=== PATIENT | male | born 1975 | race African-American/Black ===

== ENCOUNTER 2020-09-08 18:29 | Emergency (ER) | payer OTHER, SELFPAY ==
--- NOTE | ~2020-09-08 | US_ITS ---
EXAMINATION: US SCROTUM CLINICAL INFORMATION: Left testicular/scrotal swelling. COMPARISON: None TECHNIQUE: A sonogram of the scrotum was performed assessing mitchell-scale appearance and color Doppler flow. Spectral Doppler analysis of the arterial and venous flow were performed in the testes bilaterally. FINDINGS: RIGHT: Right testicle measures 4.4 x 2.5 x 3.1 cm, volume 17.7 mL. No focal testicular parenchymal lesions are visualized. Spectral Doppler analysis of the arterial and venous flow is normal in the right testis. Right epididymal head is normal in size. A small right hydrocele is present. No varicocele is seen. The epididymal body as slightly increased in size and epididymal Doppler flow is increased. An epididymal appendix is seen LEFT: Left testicle measures 4.4 x 2.6 x 3.1 cm, volume 18.5 mL. No focal testicular parenchymal lesions are visualized. Spectral Doppler analysis of the arterial and venous flow is normal in the left testis. Left epididymal head is normal in size. A physiologic left hydrocele present. No varicocele is seen. Left epididymal Doppler flow is normal. US/US scrotum IMPRESSION: 1. Normal-appearing testes. 2. Normal symmetric flow in both testes without evidence to suggest torsion. 3. Moderate-sized right hydrocele 4. Increased vascular flow in right epididymis suggesting epididymitis
--- NOTE | ~2020-09-08 | US_ITS ---
EXAMINATION: US SCROTUM CLINICAL INFORMATION: Left testicular/scrotal swelling. COMPARISON: None TECHNIQUE: A sonogram of the scrotum was performed assessing mitchell-scale appearance and color Doppler flow. Spectral Doppler analysis of the arterial and venous flow were performed in the testes bilaterally. FINDINGS: RIGHT: Right testicle measures 4.4 x 2.5 x 3.1 cm, volume 17.7 mL. No focal testicular parenchymal lesions are visualized. Spectral Doppler analysis of the arterial and venous flow is normal in the right testis. Right epididymal head is normal in size. A small right hydrocele is present. No varicocele is seen. The epididymal body as slightly increased in size and epididymal Doppler flow is increased. An epididymal appendix is seen LEFT: Left testicle measures 4.4 x 2.6 x 3.1 cm, volume 18.5 mL. No focal testicular parenchymal lesions are visualized. Spectral Doppler analysis of the arterial and venous flow is normal in the left testis. Left epididymal head is normal in size. A physiologic left hydrocele present. No varicocele is seen. Left epididymal Doppler flow is normal. US/US scrotum doppler IMPRESSION: 1. Normal-appearing testes. 2. Normal symmetric flow in both testes without evidence to suggest torsion. 3. Moderate-sized right hydrocele 4. Increased vascular flow in right epididymis suggesting epididymitis
[2020-09-08 18:48] VITALS: BP 150/89; PULSE 71; RESP 18; TEMP 36.4; O2SAT 99; BMI 29.9
[2020-09-08] MEDS: Ketorolac Tromethamine 60 MG/2 ML VIAL IM (20:33)
--- NOTE | 2020-09-08 20:44 | ED.MALEGU ---
HPI - Male Genitourinary General Chief complaint: Urogenital-Male Stated complaint: severe swollen in lower extrimity Time Seen by Provider: 09/08/20 19:51 Source: patient Mode of arrival: ambulatory Limitations: no limitations History of Present Illness HPI Narrative: 45-year-old male who presents emergency department for evaluation of painful swollen right testicle. The patient states that the pain and swelling came on gradually approximately 3 days prior. He states the pain is a constant, dull ache which is [id number] in intensity. He states that the testicle is gotten larger in size therefore E became concerned and came to the emergency department for evaluation. He denied fever, chills, frequency, urgency, dysuria or penile discharge. 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 2230: The patient's Doppler ultrasound of the testicle and scrotum revealed no evidence of torsion. The patient does have increased vascular flow to the right epididymis suggesting epididymitis. There is a moderate-size right hydrocele as well. The patient was treated with ceftriaxone 500 mg with lidocaine IM. He was given a prescription for doxycycline 100 mg every 12 hours times 10 days, given his 1st dose here in the emergency department. Patient will also be treated with Flagyl 2 g orally x1 dose. The patient will be tested for GC and chlamydia from a non clean catch urine. The patient will need to follow-up with our on-call neurologist. He was advised to take Tylenol and ibuprofen for his pain. Related Data Allergies Allergy/AdvReac Type Severity Reaction Status Date / Time No Known Allergies Allergy Verified 09/08/20 18:53 Review of Systems Review of Systems: Yes all other systems are reviewed and are negative [facility] Past Medical History [facility] Narrative: Past medical history: Diabetes mellitus, gout, bicuspid aortic valve. Surgical history: None. Social history: He denies tobacco, alcohol and drug use. Medical History (Updated 09/08/20 @ 18:52 by Kaya Manley) Gout Rheumatoid arthritis Surgical History (Updated 09/08/20 @ 18:52 by Kaya Manley) H/O hand surgery Social History Social History Advance Directives: No Advance Directives Information Provided: Yes Physical Exam Vital Signs: Vital Signs: Last Vital Signs Temp 97.6 F 09/08/20 18:48 Pulse 71 09/08/20 18:48 Resp 18 09/08/20 18:48 BP 150/89 H 09/08/20 18:48 Pulse Ox 99 09/08/20 18:48 Body Mass Index 29.9 Const: General: cooperative and healthy appearing Nutritional Appearance: average body habitus Orientation/consciousness: oriented to person and oriented to place Limitations: no limitations HENMT: Head: Yes normal to inspection Eyes: General: appearance normal, both eyes and all related structures Neck: Neck: Yes normal visual inspection Chest: Chest palpation & inspection: normal inspection of the chest Resp: Effort & Inspection: normal respiratory effort Cardio: Rhythm: regular rhythm Heart sounds: S1 normal heart sound present and S2 normal heart sound present GI: Inspection: Yes normal to inspection Palpation (GI): Soft to palpation and nontender : Meatus: meatus normal and no meatla discharge Scrotum: not erythematous, testes descended bilaterally and scrotal swelling on the right and diffuse Testes: Enlarged testicle(s) present, epididymal induration and epididymal tenderness Neuro: General: oriented to person and oriented to place Extrem: General: Yes normal to inspection Psych: Appearance: grossly normal Course Course Course Narrative: 45-year-old male who presents the emergency department for evaluation of right-sided testicular swelling and pain. Physical examination did reveal a tender enlarged testicle as well as a very enlarged epididymis. I did order Toradol 60 mg IM for the patient's pain. A Doppler ultrasound of the testicle and ultrasound the scrotum has been ordered to rule out torsion versus epididymitis. 2217: The patient's Doppler ultrasound of the testicle and scrotum is consistent with right sided epididymitis. Patient also has a right hydrocele. The patient was treated with ceftriaxone 500 mg IM, doxycycline 100 mg twice a day for 10 days. The patient will need to be referred to the on-call urologist for re-evaluation and follow-up.
[2020-09-08] MEDS: cefTRIAXone sodium 500 MG, Lidocaine HCl 1 % MPF 1 ML IM (22:37)
[2020-09-09 05:44] LABS: CT PCR NOT DETECTED (Not Detect.); NG PCR NOT DETECTED (Not Detect.)
== END 2020-09-08 22:49 | disposition home or self-care (01) ==
PROVIDERS: Emergency Provider Emergency Medicine Emergency Medical Services
DX: N50.89 Other specified disorders of the male genital organs (principal); R10.2 Pelvic and perineal pain; Z20.2 Contact with and (suspected) exposure to infections with a predominantly sexual mode of transmission
CPT/HCPCS: 76870; 87491; 87591; 93975; 96372; 99284; J0696; J1885

== ENCOUNTER 2020-09-26 18:03 | Emergency (ER) | payer OTHER, SELFPAY ==
--- NOTE | ~2020-09-26 | XR_ITS ---
EXAMINATION: XR HAND, RIGHT XR HAND, LEFT CLINICAL INFORMATION: Swelling. RA COMPARISON: None TECHNIQUE: PA, lateral, and oblique views of each hand. FINDINGS: RIGHT HAND: Also fractures are evident at the bases of the fourth and fifth metacarpals. Mild posttraumatic osteoarthritis is suspected at the fourth and fifth CMC joints. There is minimal osteoarthritis in the first MCP and CMC joints as well as the index and long finger DIP joints. No erosions. Bone mineralization is normal. Soft tissues are unremarkable. LEFT HAND: There is focal soft tissue swelling of the thumb MCP joint. There is minimal underlying osteoarthritis which is characterized predominantly by small marginal osteophytes. Minimal osteoarthritis also suspected at the first CMC joint as well as the index finger DIP joint. No erosions. Bone mineralization is normal. Joints otherwise well-preserved. No fractures. XR/XR hand RT 2V IMPRESSION: Focal posttraumatic osteoarthritis at the right fourth and fifth CMC joints with healed fractures of the fourth and fifth metacarpal bases. More mild multifocal osteoarthritis in the hands. No evidence of rheumatoid arthritis. Focal soft tissue swelling at the thumb MCP joint.
--- NOTE | ~2020-09-26 | XR_ITS ---
EXAMINATION: XR HAND, RIGHT XR HAND, LEFT CLINICAL INFORMATION: Swelling. RA COMPARISON: None TECHNIQUE: PA, lateral, and oblique views of each hand. FINDINGS: RIGHT HAND: Also fractures are evident at the bases of the fourth and fifth metacarpals. Mild posttraumatic osteoarthritis is suspected at the fourth and fifth CMC joints. There is minimal osteoarthritis in the first MCP and CMC joints as well as the index and long finger DIP joints. No erosions. Bone mineralization is normal. Soft tissues are unremarkable. LEFT HAND: There is focal soft tissue swelling of the thumb MCP joint. There is minimal underlying osteoarthritis which is characterized predominantly by small marginal osteophytes. Minimal osteoarthritis also suspected at the first CMC joint as well as the index finger DIP joint. No erosions. Bone mineralization is normal. Joints otherwise well-preserved. No fractures. 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 More mild multifocal osteoarthritis in the hands. No evidence of rheumatoid arthritis. Focal soft tissue swelling at the thumb MCP joint.
[2020-09-26 18:13] VITALS: BP 175/94; PULSE 65; RESP 18; TEMP 36.7; O2SAT 99; BMI 32.3
--- NOTE | 2020-09-26 20:18 | ED.EXTPRO ---
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 States that he has been using diclofenac gel however it is not working very well for him. Patient states that he is looking for Toradol injection and referral to an orthopedic or contract preparer for a 2nd opinion. Patient does not report any other concerns at this time. MD Complaint: extremity pain and extremity swelling Onset (ago): unknown Pain Consistency: constant Location: left, right and upper extremity Severity scale (1-10): 9 Quality: aching Radiation: none Relieving factors: nothing Exacerbating factors: range of motion and palpation Associated symptoms: denies other symptoms Related Data Previous Rx's Medication Instructions Recorded doxycycline hyclate 100 mg tablet 100 mg PO Q12H 10 Days #20 tab 09/08/20 metronidazole 500 mg tablet 2,000 mg PO ONCE 1 Days #4 tab 09/08/20 (Flagyl) naproxen 500 mg tablet 500 mg PO BID PRN #20 tab 09/26/20 Allergies Allergy/AdvReac Type Severity Reaction Status Date / Time No Known Allergies Allergy Verified 09/08/20 18:53 Review of Systems Review of Systems: Constitutional: No Fever, No Chills ENT/Mouth: No Ear Pain, No Hoarseness, No sore throat Eyes: No Eye Pain, No Swelling, No Redness, No Foreign Body Cardiovascular: No Chest Pain, No SOB Respiratory: No Cough, No Dyspnea Gastrointestinal: No Nausea, No Vomiting, No Diarrhea, No abdominal Pain Genitourinary: No Dysuria, No Hematuria Musculoskeletal: positive bilateral hand joint pain, No Myalgias, positive bilateral hand Joint Swelling Skin: No Skin lacerations, No rash Neuro: No Weakness, No Numbness, No Paresthesias, No Loss of Consciousness, No Dizziness, No Headache Psych: No Anxiety/Panic, No Depression Heme/Lymph: no easy bruising, no Lymphadenopathy Endocrine: No Polyuria, No Polydipsia Yes all other systems are reviewed and are negative [facility] Past Medical History Attestation statement: The following information was validated with the patient. Source: old records reviewed Medical History Gout Rheumatoid arthritis Surgical History H/O hand surgery Social History Social History Advance Directives: No Advance Directives Information Provided: Yes Physical Exam Vital Signs: Vital Signs: Last Vital Signs Temp 98.0 F 09/26/20 18:13 Pulse 65 09/26/20 18:13 Resp 18 09/26/20 18:13 BP 175/94 H 09/26/20 18:13 Pulse Ox 99 09/26/20 18:13 Body Mass Index 32.3 Appearance: Alert. Oriented X3. No acute distress. Eyes: Pupils equal, round and reactive to light. ENT: Pharynx normal. Neck: Normal inspection. Neck supple. CVS: Normal heart rate and rhythm. Pulses normal. Respiratory: No respiratory distress. Breath sounds normal. Abdomen: Soft and nontender. Skin: Skin warm and dry. Normal skin color. Normal skin turgor. Extremities: No lower extremity edema. Positive bilateral hand joint swelling consistent with rheumatoid and osteo arthritis Neuro: No motor deficit. No sensory deficit. 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 Is requesting a referral to another orthopedic surgeon for 2nd opinion as well as Rheumatology. He is requesting a Toradol injection, which I agreed to. He was requesting a CT scan of the hands, I did tell him that CT scan is not indicated for his hands but I would offer x-rays. X-rays are negative for new findings. I did refer to pain management and rheumatology. Patient verbalized understanding of and agrees to plan of care to discharge home. MDM - Extremity (Nontraumatic) MDM Narrative Medical decision making narrative: RA, oa Differential Diagnosis Differential diagnosis: Likely gout Medical Records Attestation: I reviewed the patient's medical records. Imaging Data Bilateral hand x-ray: Attestation: I personally reviewed and interpreted this imaging study as follows: Radiologist's impression: EXAMINATION: XR HAND, RIGHT XR HAND, LEFT CLINICAL INFORMATION: Swelling. RA COMPARISON: None? TECHNIQUE: PA, lateral, and oblique views of each hand. FINDINGS: RIGHT HAND: Also fractures are evident at the bases of the fourth and fifth metacarpals. Mild posttraumatic osteoarthritis is suspected at the fourth and fifth CMC joints. There is minimal osteoarthritis in the first MCP and CMC joints as well as the index and long finger DIP joints. No erosions. Bone mineralization is normal. Soft tissues are unremarkable. LEFT HAND: There is focal soft tissue swelling of the thumb MCP joint. There is minimal underlying osteoarthritis which is characterized predominantly by small marginal osteophytes. Minimal osteoarthritis also suspected at the first CMC joint as well as the index finger DIP joint. No erosions. Bone mineralization is normal. Joints otherwise well-preserved. No fractures. 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 ? More mild multifocal osteoarthritis in the hands. No evidence of rheumatoid arthritis. ? Focal soft tissue swelling at the thumb MCP joint. Discharge Plan Discharge Clinical Impression: Osteoarthritis Patient Disposition: Home, Self-Care Instructions: Osteoarthritis (ED) Additional Instructions: You were evaluated for bilateral hand pain and swelling. Your x-rays are negative for acute findings requiring emergent intervention. Osteoarthritis is found in both hands. Please follow-up with pain management and or orthopedics. I have referred you to both Dr Kumar and rheumatology. Continue to take your medications as previously prescribed. Thank you for choosing this emergency department for evaluation. Please follow-up with primary care physician as needed. Return to the emergency department for any new, concerning, or worsening symptoms. Prescriptions: New naproxen 500 mg tablet 500 mg PO BID PRN (Reason: pain) Qty: 20 RF: 0 No Action doxycycline hyclate 100 mg tablet 100 mg PO Q12H 10 Days Qty: 20 RF: 0 metronidazole [Flagyl] 500 mg tablet 2,000 mg PO ONCE 1 Days Qty: 4 RF: 0 Referrals: [facility] [Provider Group] - 2 days Rajendra Kumar MD [Physician] - 2 days (Osteoarthritis) Stand Alone Forms: Work/School Release Interventions: ED Discharge Assessment Last Done: 09/26/20 23:29 Discharge Date/Time: 09/26/20 23:45
[2020-09-26] MEDS: Ketorolac Tromethamine 60 MG/2 ML VIAL IM (21:34)
== END 2020-09-26 23:45 | disposition home or self-care (01) ==
PROVIDERS: Emergency Provider Internal Medicine
DX: M19.041 Primary osteoarthritis, right hand (principal); M19.042 Primary osteoarthritis, left hand; M79.642 Pain in left hand; M79.641 Pain in right hand; Z79.899 Other long term (current) drug therapy
CPT/HCPCS: 73120; 96372; 99284; J1885